=== PATIENT | female | born 1980 | race American Indian/Alaskan Native ===

== ENCOUNTER 2018-05-25 06:00 | Day surgery (SDC) | payer MEDICAID ==
--- NOTE | 2018-05-24 22:28 | Short Stay Summary ---
Short Stay Documentation Date of service: 05/25/18 Narrative H&P: 38y/o @ 7+ weeks presents with findings of an embryonic demise. The patient denies any precipitating event to her loss. She denies any vaginal bleeding or cramping. Patient has been reassessed/reevaluated/re-examined. H&P has been reviewed. No interval changes. - History Principal diagnosis: Missed Past Medical History: No medical history Past Surgical History: Social history: - Allergies and Medications Current Medications: Allergies Sulfa (Sulfonamide Antibiotics) Allergy (Verified 05/21/18 15:01) Swelling Home Medications Medication Instructions Recorded Confirmed Last Taken Type No Known Home Medications [No 05/21/18 05/21/18 Unknown History Reported Home Medications] - Physical exam General appearance: no acute distress Integumentary: no rash HEENT: Atraumatic Lungs: Clear to auscultation Breasts: deferred Heart: Regular rate Gastrointestinal: normal Female Genitourinary: deferred Rectal Exam: deferred - Brief post op/procedure progress note Date of procedure: 05/25/18 Pre-op diagnosis: Missed Post-op diagnosis: same Procedure: suction dilation and curettage Anesthesia: GETA Surgeon: NICOLE HIRSCH Estimated blood loss: other (200ml) Pathology: list (POC) Specimen disposition: to lab Condition: stable - Hospital course Hospital course: The patient was admitted the day of surgery and underwent a suction dilatation and curettage for missed . Please see operative note for details of surgery. A postoperative course was uneventful. - Disposition Condition at discharge: Good Disposition: DC-01 TO HOME OR SELFCARE Short Stay Discharge Plan Activity: other (pelvic rest for 1 week) Diet: regular Additional Instructions: Patient may follow up with Dr. Harden in 2 weeks Prescriptions: HYDROcodone/APAP 5-325 [[place] 5/325] 1 each PO Q6HR PRN #30 tablet PRN Reason: Pain Ibuprofen [Motrin] 800 mg PO Q8HR PRN #60 tablet PRN Reason: Pain, Mild (1-3)
[~2018-05-25 06:00] MED LIST: LACTATED RINGERS 1,000 ML IV SCH; PEPCID PO NR; VERSED IV NR
[2018-05-25] MEDS ORDERED: METHERGINE IM ONE ×2 (06:36→07:40)
[2018-05-25] MEDS ORDERED: SILVER NITRATE TP ONE ×2 (06:36→07:40)
[2018-05-25] MEDS ORDERED: DILAUDID IV PRN (06:41)
[2018-05-25] MEDS ORDERED: NORCO 5/325 PO PRN (06:41)
[2018-05-25] MEDS ORDERED: ZOFRAN ODT PO PRN (06:41)
--- NOTE | 2018-05-25 06:41 | Anesthesia Day of Surgery ---
Anesthesia Day of Surgery - Day of Surgery Patient Examined: Yes Patient H&P Reviewed: Yes Patient is NPO: Yes
--- NOTE | 2018-05-25 06:41 | Anesthesia Consultation ---
Anesthesia Consult and Med Hx Date of service: 05/25/18 - Airway Anesthetic Teeth Evaluation: Good ROM Head & Neck: Adequate Mental/Hyoid Distance: Adequate Mallampati Class: Class II Intubation Access Assessment: Probably Good - Pulmonary Exam CTA: Yes - Cardiac Exam Cardiac Exam: RRR - Pre-Operative Health Status ASA Pre-Surgery Classification: ASA2 Proposed Anesthetic Plan: General - Pulmonary Hx Smoking: Yes ("Socially") Hx Asthma: Yes (As a child) - Central Nervous System Hx Psychiatric Problems: No - Other Systems Hx Alcohol Use: Yes (Occas) Hx Cancer: No
[2018-05-25] MEDS ORDERED: XYLOCAINE MPF 2% ONE (07:13)
[2018-05-25] MEDS ORDERED: SUBLIMAZE ONE (07:13)
[2018-05-25] MEDS ORDERED: DIPRIVAN 10 MG/ML IV ONE (07:13)
[2018-05-25] MEDS ORDERED: ZOFRAN ONE (07:17)
[2018-05-25] MEDS ORDERED: DECADRON ONE (07:17)
--- NOTE | 2018-05-25 08:19 | Operative Report ---
Operative Report Operative Report: Date of surgery: 05/25/2018 Preoperative diagnosis: Missed Postoperative diagnosis: Same as above Procedure: Suction dilatation and curettage Surgeon: Flakita Harden M.D. Anesthesia: Gen. endotracheal anesthesia Estimated blood loss: 200 mL Findings: Products of conception Indication: 38-year-old at 7 weeks estimated gestational age of findings of a missed . Procedure: The patient was taken to the operating room and given general endotracheal anesthesia without complication. The patient is prepped and draped in a normal sterile fashion. A bivalve speculum was placed in the patient's vagina and a single-tooth tenaculums placed on the anterior lip of the cervix. The uterine cavity was then sounded. The cervical os was then dilated with graduated dilators. A number 8 Marshallese curved cannula was placed to suction and found to be adequate. The cannula was then gently inserted into the dilated cervical os. Evacuation of the uterine contents were performed. Sharp curettage and endometrial surface was performed until cry was achieved. The cannula was then gently reinserted into the uterine cavity to evacuate any additional contents. After removal of the cannula there was no evidence of any active bleeding. The vaginal instruments were then removed atraumatically. The patient was then successfully extubated and taken to the recovery room in stable condition. All sponge laps and needle counts were correct 2. Pathology consisted of products of conception.
[2018-05-25 09:58] VITALS: BP 108/56
--- NOTE | 2018-05-25 10:53 | Post Anesthesia Evaluation ---
- Post Anesthesia Evaluation Patient Participated: Yes Airway Patent: Yes Stable Respiratory Function: Yes Nausea/Vomiting: No Temp > 96.8F: Yes Pain Manageable: Yes Adequeate Hydration: Yes Anesthesia Complications: No
== END 2018-05-25 09:45 | disposition home or self-care (01) ==
LOC: OR 06:00
PROVIDERS: ATTEND Obstetrics & Gynecology
DX: O02.1 Missed abortion (principal); F17.210 Nicotine dependence, cigarettes, uncomplicated; Z3A.01 Less than 8 weeks gestation of pregnancy; Z79.899 Other long term (current) drug therapy; Z88.2 Allergy status to sulfonamides; Z72.89 Other problems related to lifestyle; Z98.890 Other specified postprocedural states
CPT/HCPCS: 59820; 88305; J1100; J2210; J2250; J2405; J2704; J3010; J7120

== ENCOUNTER 2021-12-04 07:30 | Inpatient (IN) | payer BC, MEDICAID ==
[2021-12-06] MEDS ORDERED: FAMOTIDINE 20 MG/2 ML INJ IV ONE (06:00)
[2021-12-06] MEDS ORDERED: LACTATED RINGERS 1,000 ML IV SCH (06:00)
[2021-12-06] MEDS ORDERED: BICITRA ORAL LIQD 30ML PO ONE (06:00)
[2021-12-06] MEDS ORDERED: OXYTOCIN DRIP 30 UNITS/500 ML BAG IV SCH ×2 (06:00→13:00)
[2021-12-06] MEDS ORDERED: METOCLOPRAMIDE 10 MG/2 ML INJ IV ONE (06:00)
[2021-12-06] MEDS ORDERED: ceFAZolin/Water 2 GM/20 ML 2 GM/20 ML SYRINGE IV NR (06:00)
[2021-12-06 06:45] LABS: Basophils % (Auto) 0.2 % (0.0-1.8); Eosinophils # (Auto) 0.1 K/mm3 (0.0-0.4); Hematocrit 29.3 % (30.3-42.9); Hemoglobin 9.8 gm/dl (10.1-14.3); Lymphocytes # (Auto) 1.6 K/mm3 (1.2-5.4); Lymphocytes % (Auto) 27.1 % (13.4-35.0); Mean Corpuscular HGB Conc 33 % (30-34); Mean Corpuscular Volume 75 fl (79-97); Monocytes # (Auto) 0.9 K/mm3 (0.0-0.8); Monocytes % (Auto) 15.1 % (0.0-7.3); Platelet Count 243 K/mm3 (140-440); Red Cell Distribution Width 15.5 % (13.2-15.2)
--- NOTE | 2021-12-06 07:17 | Anesthesia Consultation ---
Anesthesia Consult and Med Hx Date of service: 12/06/21 - Airway Anesthetic Teeth Evaluation: Good ROM Head & Neck: Adequate Mental/Hyoid Distance: Adequate Mallampati Class: Class II Intubation Access Assessment: Probably Good - Pulmonary Exam CTA: Yes - Cardiac Exam Cardiac Exam: RRR - Pre-Operative Health Status ASA Pre-Surgery Classification: ASA2 Proposed Anesthetic Plan: Spinal Nerve Block: TAP BLOCK - Pulmonary Hx Smoking: Yes ("Socially" - quit 2 years ago) Hx Asthma: Yes (Used inhaler last week) Hx Sleep Apnea: No - Cardiovascular System Hx Hypertension: No - Central Nervous System Hx Seizures: No CVA: No Hx Psychiatric Problems: No - Endocrine Hx Renal Disease: No Hx Liver Disease: No Hx Non-Insulin Dependent Diabetes: No Hx Hypothyroidism: No Hx Hyperthyroidism: No - Hematic Hx Anemia: No Hx Sickle Cell Disease: No - Other Systems Hx Alcohol Use: No Hx Cancer: No - Additional Comments Anesthesia Medical History Comments: no hx of anesthetic complications
--- NOTE | 2021-12-06 07:17 | Anesthesia Day of Surgery ---
Anesthesia Day of Surgery - Day of Surgery Patient Examined: Yes Patient H&P Reviewed: Yes Patient is NPO: Yes
--- NOTE | 2021-12-06 07:45 | History and Physical Report ---
History of Present Illness Date of examination: 12/06/21 Date of admission: 12/06/21 05:24 Chief complaint: scheduled section History of present illness: Pt is a 41 year old LUÍS 12/06/21 atg 40w0d who presents for scheduled section secondary to previous x 1. She reports good movement and denies vaginal bleeding or leakage of fluid. She has had care at [facility] since 12 wks complicated by advanced maternal age, asthma, obesity, anemia, lapse in care from 24 to 31 wks and GBS positive status Past History Past Medical History: asthma, hematologic disorders (anemia ), other (obesity) Past Surgical History: section, D&C Social history: no significant social history - Obstetrical History Expected Date of Delivery: 12/06/21 Actual Gestation: 40 Week(s) 0 Day(s) : 3 Para: 1 Hx # Term Pregnancies: 1 Number of Pregnancies: 0 Spontaneous Abortions: 1 Induced : 0 Number of Living Children: 1 Medications and Allergies Allergies Allergy/AdvReac Type Severity Reaction Status Date / Time Sulfa (Sulfonamide Allergy Swelling Verified 05/21/18 15:01 Antibiotics) Home Medications Medication Instructions Recorded Confirmed Last Taken Type HYDROcodone/APAP 5-325 [[place] 1 each PO Q6HR PRN #30 tablet 05/25/18 Unknown Rx 5/325] Ibuprofen [Motrin] 800 mg PO Q8HR PRN #60 tablet 05/25/18 Unknown Rx Active Meds: Active Medications Lactated Ringer's (Lactated Ringers) 1,000 mls @ 2,250 mls/hr IV PREOP ADRIANA Stop: 12/07/21 06:27 Oxytocin/Sodium Chloride (Pitocin/Ns 30 Unit/500ml) 30 units in 500 mls @ 0 mls/hr IV TITR ADRIANA; Protocol Cefazolin Sodium (Ancef/Sterile Water 2 Gm/20 Ml) 2 gm in 20 mls @ 80 mls/hr IV PREOP NR; Protocol Stop: 12/06/21 23:59 Review of Systems All systems: negative - Vital Signs Vital signs: Vital Signs Pulse BP 75 120/75 12/06/21 06:18 12/06/21 06:18 Temp Pulse Resp BP Pulse Ox 97.9 F 84 16 118/71 99 12/06/21 06:29 12/06/21 07:37 12/06/21 06:29 12/06/21 07:37 12/06/21 07:37 - Physical Exam Breasts: Positive: deferred Abdomen: Positive: soft (obese, gravid ) Uterus: Positive: enlarged (gravid ) Extremities: Positive: edema (trace) - Obstetrical FHR: auscultation normal Uterine Contraction Monitor Mode: External Uterine Contraction Pattern: Irregular Results Result Diagrams: 12/06/21 06:25 Abnormal lab results 12/06/21 Range/Units 06:25 Hgb 9.8 L (10.1-14.3) gm/dl Hct 29.3 L (30.3-42.9) % MCV 75 L (79-97) fl MCH 25 L (28-32) pg RDW 15.5 H (13.2-15.2) % Hanson % (Auto) 15.1 H (0.0-7.3) % [place] # (Auto) 0.9 H (0.0-0.8) K/mm3 All other labs normal. Assessment and Plan A: IUP at 40w0d Previous x 1 Advanced maternal age Asthma Obesity Anemia Lapse in care from 24 to 31 wks GBS positive status P: Admit to labor and delivery Two large bore IVs Cross match 2 units PRBCs Proceed with repeat section and other indicated procedures
[2021-12-06] MEDS ORDERED: SODIUM CHLORIDE 0.9% 500 ML 500 ML IV NR (07:49)
[2021-12-06] MEDS ORDERED: ceFAZolin/STERILE WATER 2 GM/20 ML SYRINGE IV ONE (07:55)
--- NOTE | 2021-12-06 08:33 | Progress Note ---
Spinal Anesthesia Block - Spinal Anesthesia Block Start Time: 07:55 Stop Time: 08:05 Performed by:: WILTON GONZALEZ Procedure: Patient IDed, H&P reviewed, all questions and concerns were answered, and consent was signed. Timeout was performed at bedside. Patient in sitting position. Sterile prep and drape was performed. [3] ml of 1% lidocaine skin wheal at L[3]- L [4]. Needle introducer advanced. 24 gauge spinal needle advanced. Clear, free flowing CSF. negative blood, negative paresthesia. Spinal dose given. All needles removed. Patient tolerated procedure.
[2021-12-06] MEDS ORDERED: miSOPROStol 200 MCG TAB ONE (08:35)
[2021-12-06] MEDS ORDERED: METHYLERGONOVINE MALEATE 0.2 MG/ML VIAL IM ONE (08:35)
[2021-12-06] MEDS ORDERED: SODIUM CHLORIDE 0.9% IRR 1,500 ML BOTTLE IR ONE (08:37)
[2021-12-06] MEDS ORDERED: WATER FOR IRRIG STERILE 1,500 ML BOTTLE IR ONE (08:37)
[2021-12-06] MEDS ORDERED: PHENYLEPHRINE/NS 1,000 MCG/10 ML SYRINGE (OR USE) IV ONE (09:17)
[2021-12-06] MEDS ORDERED: TRANEXAMIC ACID 1,000 MG/10 ML ONE (09:17)
[2021-12-06] MEDS ORDERED: dexAMETHasone 20 MG/5 ML VIAL ONE (09:20)
[2021-12-06] MEDS ORDERED: BUPIVACAINE/PF (0.5%) 5 MG/1 ML 30 ML VIAL INFILTRATI ONE (09:20)
--- NOTE | 2021-12-06 10:01 | Procedure Note ---
OB Delivery Note - Delivery Date of Delivery: 12/06/21 Surgeon: CARL CASH Estimated blood loss: other (988 mL) - Section Preop diagnosis: repeat Postop diagnosis: same section procedure: section, repeat low transverse Disposition: PACU Complications: uterine atony Narrative: Please see operative report - Infant A at 1 minute: 8 at 5 minutes: 9 Infant Gender: Male (3880g (8lb 9oz) @ 0854 am)
--- NOTE | 2021-12-06 10:11 | Operative Report ---
Operative Report Operative Report: Date of procedure: December 06, 2021 Preoperative diagnosis: 1) IUP at 40w0d 2) Previous x 1 3) Obesity 4) Advanced Maternal Age Postoperative diagnosis: Same Procedure: Repeat low transverse section Surgeon: Becca Qiu M.D. Anesthesia: Regional Findings: 1) Viable male , Apgars 7 and 9, weight 3880 g, (8 lb 9 oz) in cephalic presentation. Nuchal cord x 2. 2) Normal-appearing uterus ovaries and tubes Estimated blood loss: 988 mL IV fluids:2300 mL Urine output: 100 mL, clear at the end of the procedure Drains: Hartley to gravity Specimens: None Complications:None. Counts correct x 3 Disposition: Stable to PACU Indication for procedure: Pt is a 41 year old at 40wks presents for scheduled section secondary to previous section. Operation in detail: After the risks, benefits, alternatives and complications were explained to the patient she gave informed consent for the procedure. She was subsequently taken to the operating room where regional anesthesia was noted to be adequate. She was placed in the dorsal supine position with leftward tilt and prepped and draped in a normal sterile fashion. heart tones were noted prior to incision. A timeout was performed. A Pfannenstiel skin incision was made with the knife and carried down to the layer of the fascia with the Bovie. The fascia was incised in the midline and the fascial incision was extended bilaterally with the Bovie. The fascial incision was then stretched. The rectus muscles were then in the midline and partially transected for adequate visualization. The peritoneum was then entered bluntly. The peritoneal incision was extended with good visualization of the bladder. The peritoneal incision was then stretched. An Parish retractor was placed. The bladder blade was then placed. The vesicouterine peritoneum was grasped with smooth pick ups and incised with Metzenbaum scissors. A bladder flap was then created digitally and the bladder blade was replaced. A transverse incision was made in the lower uterine segment with a knife and extended bilaterally with the bandage scissors. Amniotomy was performed with egress of clear fluid. head delivered with ease, followed by shoulders and body. bulb suctioned at delivery. Cord clamped and cut. handed to NICU staff in attendance. Cord blood was collected. The placenta was then delivered manually. The uterus was then exteriorized and cleared of all clots and debris. The hysterotomy was then reapproximated with 0 Monocryl in a running locked fashion. A second layer of the same suture was used in imbricating fashion. The hysterotomy was inspected and hemostasis was noted. The gutters were irrigated and cleared of all clots and debris. The uterus was placed back into the peritoneal cavity. The hysterotomy was again inspected and noted to be hemostatic. Surgicel was placed over the hysterotomy. The [place] retractor was removed. The peritoneum was reapproximated with 0 Vicryl in a running fashion incorporating the rectus muscles. Surgicel was placed over the rectus muscles. The fascia was reapproximated with 0 Vicryl in a running fashion. The subcutaneous tissue was reapproximated with 3-0 Vicryl in a running fashion. The skin was reapproximated with 4-0 Monocryl in a subcuticular fashion. The incision was then covered with steri strips and a pressure dressing. The procedure was then ended. The patient tolerated the procedure well and was taken to the PACU in stable condition. All instrument, lap, and needle counts were correct 3.
[2021-12-06] MEDS ORDERED: HYDROmorphone 0.5 MG/0.5 ML INJ IV PRN (12:30)
[2021-12-06] MEDS ORDERED: WITCH HAZEL/ GLYCERIN PAD TP PRN (12:30)
[2021-12-06] MEDS: HYDROmorphone 0.5 MG/0.5 ML INJ IV PRN ×2 (12:56→21:12)
[2021-12-06] MEDS ORDERED: LANOLIN/ZINC/DIMETHICONE (LANSINOH) 7 GM TP PRN (13:00)
[2021-12-06] MEDS ORDERED: NALOXONE 0.4 MG/1 ML INJ IV PRN (13:00)
[2021-12-06] MEDS ORDERED: D5W/LACTATED RINGERS 1,000 ML IV SCH (13:00)
[2021-12-06] MEDS ORDERED: ONDANSETRON 4 MG/2 ML INJ IV PRN (13:00)
[2021-12-06] MEDS ORDERED: SIMETHICONE 80 MG CHEW TAB PO PRN (13:00)
[2021-12-06] MEDS: KETOROLAC 30 MG/1 ML INJ IV SCH (14:37)
[2021-12-06] MEDS: ceFAZolin/NS 1 GM/50 ML 1 GM/50 ML BAG IV SCH (16:10)
[2021-12-06 23:46] LABS: Hematocrit 27.4 % (30.3-42.9); Hemoglobin 8.8 gm/dl (10.1-14.3)
[2021-12-07] MEDS: ceFAZolin/NS 1 GM/50 ML 1 GM/50 ML BAG IV SCH (00:04)
[2021-12-07] MEDS ORDERED: ceFAZolin/NS 1 GM/50 ML 1 GM/50 ML BAG IV SCH (00:25)
[2021-12-07] MEDS: HYDROmorphone 0.5 MG/0.5 ML INJ IV PRN (00:54)
[2021-12-07] MEDS: KETOROLAC 30 MG/1 ML INJ IV SCH ×2 (02:52→02:58)
[2021-12-07] MEDS: IBUPROFEN 800 MG TAB PO PRN (06:45)
[2021-12-07] MEDS: oxyCODONE /ACETAMINOPHEN 5-325MG TAB PO PRN ×3 (09:44→20:56)
[2021-12-07] MEDS ORDERED: FERROUS SULFATE 325 MG TAB PO SCH (10:00)
[2021-12-07] MEDS ORDERED: MEASLES, MUMPS & RUBELLA 12,500 UNIT/0.5 ML VACCINE SUB-Q ONE (10:15)
[2021-12-07] MEDS ORDERED: TETANUS,DIPH,PERTUSS(ACELL) VACCINE 0.5 ML SYRINGE IM ONE (10:15)
[2021-12-07] MEDS: LACTULOSE 20 GM/30 ML ORAL LIQD PO SCH ×2 (10:50→20:59)
--- NOTE | 2021-12-07 13:40 | Progress Note ---
Assessment and Plan - Patient Problems (1) Status post repeat low transverse section Current Visit: Yes Status: Acute Plan to address problem: Continue routine PP orders Keep dressing clean and dry, remove on POD#2 Anticipate d/c home in 24-48 hrs (2) Obesity (BMI 30-39.9) Current Visit: Yes Status: Acute (3) Anemia Current Visit: Yes Status: Acute Qualifiers: Anemia type: iron deficiency Plan to address problem: Asymptomatic Increase iron rich foods into diet Subjective - Subjective Date of service: 12/07/21 Principal diagnosis: repeat C/S; POD#1 Interval history: Pt is a 41 year old LUÍS 12/06/21 atg 40w0d who presents for scheduled section secondary to previous x 1. She reports good movement and denies vaginal bleeding or leakage of fluid. She has had care at [facility] since 12 wks complicated by advanced maternal age, asthma, obesity, anemia, lapse in care from 24 to 31 wks and GBS positive status. Delivered viable male via C/S. Patient reports: appetite normal, voiding normally, pain well controlled (with medications), flatus, ambulating normally, no bowel movement : doing well, bottle feeding (and ) Objective - Vital Signs Latest vital signs: Vital Signs Temp Pulse Resp BP Pulse Ox Pulse Ox 12/07/21 07:38 98.3 F 68 18 113/64 98 12/07/21 06:45 18 12/07/21 05:55 97.8 F 70 20 101/59 99 12/07/21 02:58 16 12/07/21 00:15 98.1 F 62 20 111/63 98 12/06/21 21:54 98.1 F 67 20 114/63 99 12/06/21 19:34 98 12/06/21 15:30 98.4 F 59 L 16 120/63 100 Intake and Output 12/06/21 12/07/21 12/07/21 23:59 07:59 15:59 Intake Total 410 360 240 Output Total 200 500 300 Balance 210 -140 -60 Intake: IV 50 ANCEF/NS 1 GM/50 ML 1 gm 50 In 50 ml @ 100 mls/hr IV Q8H [facility] Rx#:[id number] Oral 120 360 240 Intake, Free Water 240 Output: Urine 200 500 300 Indwelling Catheter 200 Void 500 300 Other: Total, Intake Amount 120 240 240 Total, Output Amount 200 500 300 - Exam Breasts: Present: normal Cardiovascular: Present: Regular rate Lungs: Present: Normal air movement Abdomen: Present: soft, tenderness Uterus: Present: firm, fundal height below umbilicus (U-2) Extremities: Present: edema Deep Tendon Reflex Grade: Normal +2 Incision: Present: dressed (no shadow drainage or bleeding noted) - Labs Labs: Abnormal lab results 12/06/21 Range/Units 23:37 Hgb 8.8 L (10.1-14.3) gm/dl Hct 27.4 L (30.3-42.9) %
[2021-12-08] MEDS: IBUPROFEN 800 MG TAB PO PRN ×2 (02:34→08:15)
--- NOTE | 2021-12-08 09:40 | Discharge Summary ---
Providers - Providers Date of Admission: 12/06/21 12:30 Date of discharge: 12/08/21 Attending physician: NICOLE HIRSCH 12/06/21 12:30 Consult to Service Tech/Welder [CONS] Routine Reason For Exam: Primary care physician: NICOLE HIRSCH Hospitalization Reason for admission: section Delivery: Procedure: repeat low transverse Episiotomy: none Laceration: none Incision: dry, intact (steri-strips intact) Other procedures: none complications: none Discharge diagnosis: IUP at term delivered [place] baby: male Hospital course: Pt is a 41 year old LUÍS 12/06/21 atg 40w0d who presents for scheduled section secondary to previous x 1. She reports good movement and denies vaginal bleeding or leakage of fluid. She has had care at [facility] since 12 wks complicated by advanced maternal age, asthma, obesity, anemia, lapse in care from 24 to 31 wks and GBS positive status. Delivered viable male infant via C/S. Doing well on POD#2, d/c criteria met and desires to go home if baby is good for d/c. Condition at discharge: Good Disposition: 01 HOME / SELF CARE / HOMELESS - Discharge Diagnoses (1) Status post repeat low transverse section Status: Acute (2) Obesity (BMI 30-39.9) Status: Acute (3) Anemia Status: Acute Qualifiers: Anemia type: iron deficiency Plan - Discharge Medications Prescriptions: Ibuprofen [Motrin] 800 mg PO Q8HR PRN #30 tablet PRN Reason: Pain, Moderate (4-6) oxyCODONE /ACETAMINOPHEN [Percocet 5/325] 1 tab PO Q6HR PRN #40 tablet PRN Reason: Pain - Provider Discharge Summary Activity: routine, no sex for 6 weeks, no heavy lifting 4 weeks, no strenuous exercise Diet: other (Iron rich diet) Instructions: routine Additional instructions: [] Smoking cessation referral if applicable(refer to patient education folder for contact #) [] Refer to [facility] Booklet Call your doctor immediately for: * Fever > 100.5 * Heavy vaginal bleeding ( >1 pad per hour) * Severe persistent headache * Shortness of breath * Reddened, hot, painful area to leg or breast * Drainage or odor from incision. * Keep incision clean and dry at all times and follow doctor's instructions regarding bathing/showering * Follow-up at office in 2 weeks for incision check - Follow up plan Follow up: NICOLE HIRSCH MD [Primary Care Provider] - 14 Days
[2021-12-08 09:55] VITALS: BP 115/61
[2021-12-08] MEDS: oxyCODONE /ACETAMINOPHEN 5-325MG TAB PO PRN (14:23)
== END 2021-12-08 16:24 | disposition home or self-care (01) | DRG 788 ==
LOC: APU 12-06 05:24 → UNDOADMIN 12-06 05:24 → APU 12-06 08:45 → OB 12-06 12:13 → APU 12-06 12:13 → OB 12-06 12:30 → APU 12-06 12:30
PROVIDERS: ADMIT Obstetrics & Gynecology; ATTEND Obstetrics & Gynecology
PROC: 10D00Z1 Extraction of Products of Conception, Low, Open Approach (ICD-10-PCS; principal; 2021-12-06)
PROC: 3E0234Z Introduction of Serum, Toxoid and Vaccine into Muscle, Percutaneous Approach (ICD-10-PCS; 2021-12-07)
DX: O34.211 Maternal care for low transverse scar from previous cesarean delivery (principal); O99.02 Anemia complicating childbirth; Z20.822 Contact with and (suspected) exposure to COVID-19; Z37.0 Single live birth; Z3A.40 40 weeks gestation of pregnancy; Z23 Encounter for immunization; O99.52 Diseases of the respiratory system complicating childbirth; J45.909 Unspecified asthma, uncomplicated; O99.824 Streptococcus B carrier state complicating childbirth; O99.214 Obesity complicating childbirth; O69.81X0 Labor and delivery complicated by cord around neck, without compression, not applicable or unspecified; O75.89 Other specified complications of labor and delivery; Z88.2 Allergy status to sulfonamides
CPT/HCPCS: 36415; 85014; 85018; 85025; 86850; 86900; 86901; 86920; G0378; J3490; J7060; J7121; J0690; J1100; J1170; J1885; J2370; J2590; J2765; U0003